=== PATIENT | male | born 1955 | race African-American/Black ===

== ENCOUNTER 2025-07-18 17:23 | Inpatient (IN) | payer SELFPAY ==
[~2025-07-18] VITALS: Ht 182.9 cm; Wt 124.3 kg
[2025-07-18] MEDS: SODIUM CHLORIDE 0.9% 1,000 ML IV ONE (17:53)
[2025-07-18] MEDS: ACETAMINOPHEN 325MG TABLET PO ONE (17:53)
[2025-07-18] MEDS: CEFTRIAXONE 1GM/50ML 50 ML IV ONE (17:53)
[2025-07-18 18:08] LABS: HEMATOCRIT. 39.2 % (42.0-52.0); HEMOGLOBIN. 12.4 g/dL (14.0-18.0); MEAN PLATELET VOLUME 10.3 fl (7.4-10.4); PLATELET 196 x1000/uL (130-400); RED BLOOD CELL COUNT 4.38 mill/uL (4.7-6.1); RED CELL DISTRIBUTION WIDTH 15.0 % (11.6-14.6)
[2025-07-18 18:19] LABS: INR 1.2
[2025-07-18 18:39] LABS: CREATININE 1.6 mg/dL (0.6-1.3)
[2025-07-18 18:40] LABS: TROPONIN I HIGH SENSITIVITY 49 ng/L (3.0-53); UREA NITROGEN BLOOD 19 mg/dL (9-23)
[2025-07-18 18:41] LABS: ASPARTATE AMINOTRANSFERASE 73 IU/L (<34); BILIRUBIN DIRECT 1.0 mg/dL (<=3.0)
[2025-07-18 18:42] LABS: BILIRUBIN TOTAL 1.8 mg/dL (0.1-1.0); PROTEIN TOTAL 8.4 g/dL (6.0-8.3)
[2025-07-18 18:57] LABS: BAND% 4.0 % (1.0-6.0); LYMPHOCYTES % MANUAL 4.0 % (20.0-50.0); MONOCYTES % MANUAL 3.0 % (2.0-8.0); NEUTROPHILS % MANUAL 89.0 % (45.0-75.0)
[2025-07-18 18:58] LABS: PLATELET ESTIMATE NORMAL
[2025-07-18] MEDS ORDERED: AZITHROMYCIN 500MG/250ML 250 ML IV ONE (19:00)
[2025-07-18] MEDS: AZITHROMYCIN 500MG/250ML 250 ML IV SCH (19:55)
[2025-07-18] MEDS ORDERED: DIPHENHYDRAMINE 50MG/ML VIAL IV PRN (20:00)
[2025-07-18] MEDS ORDERED: ACETAMINOPHEN 325MG TABLET PO PRN ×2 (20:00)
[2025-07-18] MEDS ORDERED: GUAIFENESIN 200MG/10ML SUGAR FREE UDC PO PRN (20:00)
[2025-07-18] MEDS ORDERED: LORAZEPAM 0.5MG TABLET PO PRN (20:00)
[2025-07-18] MEDS ORDERED: ONDANSETRON HCL 4MG/2ML INJ IV PRN (20:00)
[2025-07-18] MEDS ORDERED: DEXTROSE 50% WATER 50ML SYRINGE IV PRN (20:15)
[2025-07-18] MEDS: IPRATROPIUM/ALBUTEROL 0.5-3(2.5)MG/3ML NEB HHN PRN (20:53)
[2025-07-18 20:57] VITALS: PULSE 102; RESP 18; O2SAT 97
[2025-07-18] MEDS: BLOOD SUGAR DIAGNOSTIC STRIP TEST SCH (21:00)
[2025-07-18] MEDS: INSULIN LISPRO 100 UNITS/ML SUBCUT SCH (21:00)
[2025-07-18 21:08] LABS: INFLUENZA TYPE A Presumptive Negative (Pres. Neg.)
[2025-07-18 21:09] LABS: INFLUENZA TYPE B Presumptive Negative (Pres. Neg.); RESPIRATORY SYNCYTIAL VIRUS Not Detected (Not Detectd)
[2025-07-18 21:30] VITALS: BP 158/82; PULSE 93; RESP 17; TEMP 36.8628
[2025-07-18 21:37] LABS: CREATININE 1.5 mg/dL (0.6-1.3); UREA NITROGEN BLOOD 17.0 mg/dL (9-23)
[2025-07-18 21:42] LABS: PHOSPHORUS 1.7 mg/dL (2.5-4.9)
[2025-07-18] MEDS: METOPROLOL TARTRATE 25MG TABLET PO SCH (23:19)
[2025-07-19 00:01] LABS: TROPONIN I HIGH SENSITIVITY 50 ng/L (3.0-53)
[2025-07-19 06:43] LABS: *AMPHETAMINES SCREEN URINE NEGATIVE (NEGATIVE); *BARBITURATES SCREEN URINE NEGATIVE (NEGATIVE); *BENZODIAZEPINES SCREEN URINE NEGATIVE (NEGATIVE); *COCAINE SCREEN URINE NEGATIVE (NEGATIVE); METHADONE URINE SCREEN NEGATIVE (NEGATIVE); OPIATES URINE SCREEN NEGATIVE (NEGATIVE); PHENCYCLIDINE URINE SCREEN NEGATIVE (NEGATIVE)
[2025-07-19 06:44] LABS: CANNABINOID URINE SCREEN NEGATIVE (NEGATIVE); ECSTASY MDMA SCREEN URINE NEGATIVE (NEGATIVE)
[2025-07-19] MEDS: SODIUM PHOSPHATE 20 MMOL in DEXT 5% WATER 243.3333 ML IV NR (07:01)
[2025-07-19] MEDS: SODIUM CHLORIDE 0.9% 1,000 ML IV SCH (07:01)
[2025-07-19] MEDS: POTASSIUM CHLORIDE 20MEQ TABLET SR PO NR ×2 (07:01→07:02)
[2025-07-19] MEDS: CLONIDINE 0.1MG TABLET PO PRN (07:50)
[2025-07-19] MEDS: ASPIRIN 81MG TABLET PO SCH (09:20)
[2025-07-19] MEDS: AMLODIPINE 10MG TABLET PO SCH (09:21)
[2025-07-19] MEDS: FOLIC ACID 1MG TABLET PO SCH (09:21)
[2025-07-19] MEDS: FERROUS SULFATE 325MG TABLET PO SCH (09:21)
[2025-07-19 09:24] LABS: HEMATOCRIT. 39.5 % (42.0-52.0); HEMOGLOBIN. 12.6 g/dL (14.0-18.0); MEAN PLATELET VOLUME 11.4 fl (7.4-10.4); PLATELET 176 x1000/uL (130-400); RED BLOOD CELL COUNT 4.42 mill/uL (4.7-6.1); RED CELL DISTRIBUTION WIDTH 14.7 % (11.6-14.6)
[2025-07-19 09:41] LABS: TROPONIN I HIGH SENSITIVITY 38 ng/L (3.0-53)
[2025-07-19 09:45] LABS: LDL CHOLESTEROL 99.0 mg/dL (5-100); T4 FREE 0.83 ng/dL (0.89-1.76); TRIGLYCERIDE 115.0 mg/dL (0-150)
[2025-07-19 11:28] LABS: CLARITY URINE CLEAR (CLEAR); COLOR URINE DARK YELLOW (YELLOW); GLUCOSE URINE NEGATIVE (NEGATIVE); KETONES URINE NEGATIVE (NEGATIVE); LEUKOCYTE ESTERASE URINE TRACE (NEGATIVE); NITRITE URINE NEGATIVE (NEGATIVE); OCCULT BLOOD URINE 3+ (NEGATIVE); PH URINE 6.0 (4.5-8.0); PROTEIN URINE 3+ (NEGATIVE); SPECIFIC GRAVITY URINE 1.029 (1.005-1.030); UROBILINOGEN URINE 1.0 E.U./dL (0.2-1.0)
[2025-07-19 12:04] LABS: MUCUS URINE TRACE /lpf (NONE/TRACE)
[2025-07-19 12:05] LABS: BACTERIA URINE 1+; SQUAMOUS EPITHELIAL CELL URINE NONE SEEN /lpf (RARE/1+)
[2025-07-19 12:06] LABS: RBC URINE 0-2 /hpf (0-2); WBC URINE 0-2 /hpf (0-2)
[2025-07-19 13:02] LABS: HEPATITIS C AB REACTIVE (Pos) (Negative)
[2025-07-19 16:58] LABS: LYMPHOCYTES % MANUAL 5.0 % (20.0-50.0); MONOCYTES % MANUAL 5.0 % (2.0-8.0); NEUTROPHILS % MANUAL 90.0 % (45.0-75.0); PLATELET ESTIMATE NORMAL
[2025-07-19] MEDS: CEFTRIAXONE 1GM/50ML 50 ML IV SCH (18:00)
[2025-07-19 20:00] VITALS: BP 120/88; PULSE 90; RESP 18; TEMP 37; O2SAT 98
[2025-07-19] MEDS: ATORVASTATIN CALCIUM 20MG TABLET PO SCH (22:18)
[2025-07-20] VITALS: BP 130/90; PULSE 88; RESP 20; TEMP 36.6; O2SAT 99
[2025-07-20 04:00] VITALS: BP 164/105; PULSE 94; RESP 16; TEMP 36; O2SAT 97
[2025-07-20 08:00] VITALS: BP 168/103; PULSE 83; RESP 16; TEMP 36.5; O2SAT 100
== END 2025-07-20 09:26 | disposition left against medical advice (07) | DRG 720 ==
LOC: ER 17:23 → 5WST 18:59 → EDBEDREQTM 19:24 → EDBEDREQ 19:24
PROVIDERS: ADMIT Student in an Organized Health Care Education/Training Program; ATTEND Student in an Organized Health Care Education/Training Program
DX: A41.9 Sepsis, unspecified organism (principal); I16.1 Hypertensive emergency; J18.9 Pneumonia, unspecified organism; D64.9 Anemia, unspecified; N17.9 Acute kidney failure, unspecified; I11.9 Hypertensive heart disease without heart failure; I48.91 Unspecified atrial fibrillation; L30.9 Dermatitis, unspecified; I49.3 Ventricular premature depolarization; I87.2 Venous insufficiency (chronic) (peripheral); E89.0 Postprocedural hypothyroidism; G47.33 Obstructive sleep apnea (adult) (pediatric); Z68.37 Body mass index [BMI] 37.0-37.9, adult; E66.9 Obesity, unspecified; Z53.29 Procedure and treatment not carried out because of patient's decision for other reasons; Z79.899 Other long term (current) drug therapy; Z20.822 Contact with and (suspected) exposure to COVID-19
CPT/HCPCS: 36415; 71045; 74176; 80048; 80061; 80076; 80305; 81003; 82040; 82550; 82962; 83036; 83605; 83735; 83880; 84100; 84145; 84439; 84443; 84481; 84484; 85025; 85379; 86705; 86850; 86900; 87340; 87420; 87426; 87804; 93005; 93970; 94640; 96365; 99291; A4606; J0456; J0696; J3490; J7030; J7060

== ENCOUNTER 2025-07-22 15:03 | Emergency (ER) | payer OTHER ==
[~2025-07-22] VITALS: Ht 177.8 cm; Wt 91.0 kg
[2025-07-22 15:13] VITALS: O2SAT 94
[2025-07-22 21:25] VITALS: BP 176/80; PULSE 79; RESP 14; TEMP 36.8; O2SAT 99
== END 2025-07-22 21:30 | disposition home or self-care (01) ==
LOC: ER 15:03
DX: S82.141A Displaced bicondylar fracture of right tibia, initial encounter for closed fracture (principal); I48.91 Unspecified atrial fibrillation; Z55.6 Problems related to health literacy; Z75.3 Unavailability and inaccessibility of health-care facilities; W19.XXXA Unspecified fall, initial encounter; Y93.89 Activity, other specified; Y92.89 Other specified places as the place of occurrence of the external cause; Y99.8 Other external cause status
CPT/HCPCS: 73562; 99283